=== PATIENT | female | born 1990 | race Caucasian/White ===

== ENCOUNTER → 2017-09-13 | Outpatient (CLI) | payer OTHER | END | disposition home or self-care (01) | LOC: CFH 14:17 | PROVIDERS: ATTEND Obstetrics & Gynecology | DX: N63.10 Unspecified lump in the right breast, unspecified quadrant (principal); N64.4 Mastodynia ==

== ENCOUNTER 2019-07-10 08:00 | Day surgery (SDC) | payer OTHER ==
[~2019-07-10] VITALS: Ht 170.2 cm; Wt 79.6 kg
[2019-07-10] MEDS ORDERED: LACTATED RINGERS 1,000 ML IV SCH (14:44)
[2019-07-10 14:49] VITALS: BP 113/73
[2019-07-10] MEDS ORDERED: LEVO150T5 PO (14:59)
[2019-07-10] MEDS ORDERED: PANT40TA5 PO (14:59)
[2019-07-10] MEDS ORDERED: PLEASE ENTER ALLERGIES MC SCH (15:00)
[2019-07-10] MEDS ORDERED: PLEASE ENTER HEIGHT AND WEIGHT MC SCH (15:00)
[2019-07-10 15:06] LABS: BASOPHILS # (AUTO) 0.09 x10^3/uL (0-0.1); BASOPHILS % (AUTO) 1 % (0-1); EOSINOPHILS # (AUTO) 0.13 x10^3/uL (0-0.4); EOSINOPHILS % (AUTO) 2 % (1-7); LYMPHOCYTES # (AUTO) 1.95 x10^3/uL (1-3.4); LYMPHOCYTES % (AUTO) 28 % (22-44); MD NO; MEAN CORPUSCULAR HGB CONC 33.3 g/dL (32.4-35.8); MEAN CORPUSCULAR VOLUME 81.3 fL (80-100); MEAN PLATELET VOLUME 7.2 fL (7.4-10.4); MONOCYTES # (AUTO) 0.42 x10^3/uL (0.2-0.8); MONOCYTES % (AUTO) 6 % (2-9); NEUTROPHILS # (AUTO) 4.45 x10^3/uL (1.8-6.8); NEUTROPHILS % (AUTO) 63 % (42-75); PLATELET COUNT 289 x10^3/uL (130-400); RED BLOOD COUNT 4.57 x10^6/uL (3.82-5.3)
[2019-07-10 15:18] LABS: ALBUMIN 3.8 g/dL (3.4-5.0); ANION GAP 11 mmol/L (5-15); CALCIUM 8.2 mg/dL (8.5-10.1); CHLORIDE 107 mmol/L (98-107)
[2019-07-10 15:28] LABS: MICROSCOPIC AUTO
[2019-07-10 15:29] LABS: CULTURE INDICATED? NO
[2019-07-10] MEDS ORDERED: OXYTOCIN 10 UNITS/ML, 1ML ONE (15:31)
[2019-07-10] MEDS ORDERED: MISOPROSTOL 200 MCG TABLET ONE (15:31)
[2019-07-10] MEDS ORDERED: LIDOCAINE 1%-EPI 1:100K, 20ML ONE (15:31)
[2019-07-10] MEDS ORDERED: SILVER NITRATE STICK TP ONE (15:31)
[2019-07-10 15:37] LABS: ALANINE AMINOTRANSFERASE 11 U/L (12-78); ALKALINE PHOSPHATASE 55 U/L (45-117); BILIRUBIN,TOTAL 0.6 mg/dL (0.2-1.0); CREATININE 0.74 mg/dL (0.55-1.02); TOTAL PROTEIN 7.6 g/dL (6.4-8.2)
[2019-07-10] MEDS ORDERED: SCOPOLAMINE PATCH, 1.5MG PATCH.TD72 TD ONE (15:48)
[2019-07-10] MEDS ORDERED: MIDAZOLAM 1 MG/ML, 2ML ONE (16:20)
[2019-07-10] MEDS ORDERED: PROPOFOL 10 MG/ML, 20ML ONE (16:31)
[2019-07-10] MEDS ORDERED: KETOROLAC 30 MG/1 ML ONE (16:31)
[2019-07-10] MEDS ORDERED: ONDANSETRON 2MG/ML, 2ML ONE ×2 (16:31→17:19)
[2019-07-10] MEDS ORDERED: DEXAMETHASONE 4 MG/ML, 1ML ONE (16:31)
[2019-07-10] MEDS ORDERED: PROPOFOL 10 MG/ML, 50ML ONE (16:31)
[2019-07-10] MEDS ORDERED: FENTANYL PF 100 MCG/2ML ONE ×2 (16:34→17:52)
[2019-07-10] MEDS ORDERED: DIAZEPAM 5 MG/ML, 2ML IVPush PRN (17:00)
[2019-07-10] MEDS ORDERED: ALBUTEROL SULFATE 2.5 MG/3 ML NPPB PRN (17:00)
[2019-07-10] MEDS ORDERED: ACETAMINOPHEN 325 MG TABLET PO PRN (17:00)
[2019-07-10] MEDS ORDERED: HYDROmorphone 1 MG/ML, 1ML INJ IVPush PRN (17:00)
[2019-07-10] MEDS ORDERED: hydrALAzine 20 MG/ML, 1ML IV PRN (17:00)
[2019-07-10] MEDS ORDERED: PROMETHAZINE 25 MG/ML, 1ML IV PRN (17:00)
[2019-07-10] MEDS ORDERED: LABETALOL 5MG/ML, 20ML IV PRN (17:00)
[2019-07-10] MEDS ORDERED: KETOROLAC 30 MG/1 ML IV PRN (17:00)
[2019-07-10] MEDS ORDERED: MEPERIDINE/PF 25MG/ML,1ML ONE (17:19)
[2019-07-10] MEDS: MEPERIDINE/PF 25MG/0.5ML IVPush PRN ×2 (17:20→17:41)
[2019-07-10] MEDS ORDERED: OXYcodone 5 MG/5 ML ORAL.SOL UDC ONE (17:43)
[2019-07-10] MEDS ORDERED: ACETAMINOPHEN 650 MG/20.3 ML UDC ONE (17:43)
[2019-07-10] MEDS: OXYcodone 5 MG/5 ML ORAL.SOL UDC PO PRN (17:44)
[2019-07-10] MEDS: FENTANYL PF 100 MCG/2ML IV PRN ×2 (17:55→18:05)
[2019-07-10 18:00] VITALS: BP 107/69
== END 2019-07-10 19:58 | disposition home or self-care (01) ==
LOC: OR 08:00
PROVIDERS: ATTEND Obstetrics & Gynecology
DX: O02.1 Missed abortion (principal); K58.9 Irritable bowel syndrome, unspecified; F15.90 Other stimulant use, unspecified, uncomplicated; E03.9 Hypothyroidism, unspecified; Z3A.01 Less than 8 weeks gestation of pregnancy; Z72.89 Other problems related to lifestyle; Z88.5 Allergy status to narcotic agent; Z88.8 Allergy status to other drugs, medicaments and biological substances
CPT/HCPCS: 36415; 59820; 80053; 81001; 84702; 85025; 86850; 86870; 86900; 86922; 88305; J1100; J1885; J2175; J2405; J2704; J2790; J3010; J3490; J7120; 86923; J2250; J2590